=== PATIENT | male | born 1970 | race African-American/Black ===

== ENCOUNTER 2017-12-24 22:02 | Emergency (ER) | payer OTHER ==
[2017-12-24] MEDS: KETOROLAC 60 MG/2 ML INJ. IM (23:15)
== END 2017-12-25 00:45 | disposition home or self-care (01) ==
LOC: ER 22:02
DX: S29.012A Strain of muscle and tendon of back wall of thorax, initial encounter (principal); S39.012A Strain of muscle, fascia and tendon of lower back, initial encounter; E78.00 Pure hypercholesterolemia, unspecified; I10 Essential (primary) hypertension; G89.29 Other chronic pain; V49.49XA Driver injured in collision with other motor vehicles in traffic accident, initial encounter; Y93.I9 Activity, other involving external motion; Y99.8 Other external cause status; Y92.488 Other paved roadways as the place of occurrence of the external cause
CPT/HCPCS: 72040; 72072; 72100; 96372; 99284; J1885

== ENCOUNTER → 2018-01-08 | Day surgery (SDC) | payer OTHER ==
[~2018-01-08] MED LIST: LIDOCAINE 1% PF 2 ML VIAL. ID; MORPHINE SULFATE 2 MG/ML DISP.SYRIN. IV; ONDANSETRON PF 4 MG/2 ML VIAL. IV; PROCHLORPERAZINE 10 MG/2 ML VIAL. IV; PROPOFOL 20 ML IV; fentaNYL PF VIAL 100 MCG/2 ML VIAL IV
[2018-01-08] MEDS: IV RINGERS,LACTATED 1000ML 1,000 ML IV ×2 (08:56)
[2018-01-08 09:03] LABS: POC GLUCOSE 93 mg/dL (70-99)
== END | disposition home or self-care (01) ==
LOC: ENDOS 08:05
DX: K58.2 Mixed irritable bowel syndrome (principal); Z86.010 Personal history of colon polyps; I10 Essential (primary) hypertension; E78.00 Pure hypercholesterolemia, unspecified; J45.909 Unspecified asthma, uncomplicated; M19.90 Unspecified osteoarthritis, unspecified site; E11.9 Type 2 diabetes mellitus without complications; F32.9 Major depressive disorder, single episode, unspecified; F41.9 Anxiety disorder, unspecified; Z72.89 Other problems related to lifestyle; Z98.890 Other specified postprocedural states; Z79.84 Long term (current) use of oral hypoglycemic drugs
CPT/HCPCS: 43235; 82962; J2704

== ENCOUNTER → 2018-01-16 | Outpatient (CLI) | payer OTHER | END | disposition home or self-care (01) | LOC: NM 08:40 | DX: R10.84 Generalized abdominal pain (principal); I10 Essential (primary) hypertension; E11.9 Type 2 diabetes mellitus without complications; E78.00 Pure hypercholesterolemia, unspecified; J45.909 Unspecified asthma, uncomplicated; Z86.010 Personal history of colon polyps | CPT/HCPCS: 78264; A9541 ==

== ENCOUNTER 2019-04-04 07:26 | Day surgery (SDC) | payer OTHER ==
[~2019-04-04 07:26] MED LIST changes: +AMLO10TA8 PO; +CEFP100T PO; +CRESTOR10 MG PO; +CYCL10TA2 PO; +DICY20TA3 PO; +DOXY100T PO; +FLUT12AE IH; +HYDR-2765 PO; +HYDR-2802 PO; +HYDR-3164 PO; +IV RINGERS,LACTATED 1000ML 1,000 ML IV SCH; -LIDOCAINE 1% PF 2 ML VIAL. ID; +LOSA25TA54 PO; +LUBI8CAP4 PO; +MELO15TA23 PO; +METF10007 PO; +METF500T11 PO; +METF500T16 PO; -MORPHINE SULFATE 2 MG/ML DISP.SYRIN. IV; +MULT1TAB6 PO; +NAPR-514 PO; -ONDANSETRON PF 4 MG/2 ML VIAL. IV; +PRED-220 PO; -PROCHLORPERAZINE 10 MG/2 ML VIAL. IV; -PROPOFOL 20 ML IV; +RANI150C PO; +TIZA4TAB2 PO; +TRAZ-118 PO; +VALA500T PO; +VENTOLIN HFA18 GM INH; -fentaNYL PF VIAL 100 MCG/2 ML VIAL IV
[2019-04-04] MEDS ORDERED: DULO30CA2 PO (07:57)
[2019-04-04] MEDS ORDERED: TIZA4TAB8 PO (07:58)
[2019-04-04] MEDS ORDERED: ATOR10TA60 PO (07:58)
[2019-04-04] MEDS ORDERED: MONT10TA49 PO (07:59)
[2019-04-04] MEDS ORDERED: LIDOCAINE 2% PF 5 ML VIAL. ONE (08:13)
[2019-04-04] MEDS ORDERED: PROPOFOL 40 ML IV ONE (08:13)
[2019-04-04 08:51] VITALS: BP 116/71
--- NOTE | 2019-04-07 15:07 | PATHOLOGY ---
[facility] Accession Number: [id number] . 01 Material submitted: . colon - RANDOM COLON BIOPSY . 01 Clinical history: . Abdominal pain . 02 Diagnosis: Colonic mucosa, random colon biopsy: - No significant pathologic abnormalities. (JPM:editorial clerk; 04/07/2019) MBR 04/07/2019 1040 Local . 02 Comment: Sections of the random colon biopsy reveal multiple segments of colonic mucosa containing several mucosal-associated lymphoid aggregates. There is no evidence of a chronic destructive colitis, lymphocytic colitis, or collagenous colitis. (JPM:abdifatah; 04/07/2019) . 02 Electronically signed: . Reinier Durant MD, Pathologist NPI- [id number] . 01 Gross description: . Received in formalin labeled "Acworth, Rogers, random colon BX," are multiple segments of martinez soft tissue measuring 2.1 x 0.6 x 0.1 cm in aggregate dimensions. The specimen is filtered and entirely submitted in cassette A1. (TSD; 04/04/2019) TOB/TOB 04/04/2019 1726 Local . 02 Pathologist provided ICD-10: R10.9 . 02 CPT . 646649 Specimen Comment: A courtesy copy of this report has been sent to Specimen Comment: [phone], . Specimen Comment: Report sent to / DR RODRIGUEZ Performed at: 01 [facility] [address], [place] [id number] MD Micheal Solis MD Phone: [phone] Performed at: 02 [facility] [address] [place], [place] [id number] MD Reinier Durant MD Phone: [phone]
== END 2019-04-04 09:26 | disposition home or self-care (01) ==
LOC: ENDOS 07:26
PROVIDERS: ATTEND Internal Medicine Gastroenterology
DX: K29.50 Unspecified chronic gastritis without bleeding (principal); K52.9 Noninfective gastroenteritis and colitis, unspecified; K64.0 First degree hemorrhoids; E11.9 Type 2 diabetes mellitus without complications; E78.00 Pure hypercholesterolemia, unspecified; F15.90 Other stimulant use, unspecified, uncomplicated; J45.909 Unspecified asthma, uncomplicated; Z87.891 Personal history of nicotine dependence; Z79.84 Long term (current) use of oral hypoglycemic drugs; Z98.890 Other specified postprocedural states
CPT/HCPCS: 43235; 45380; 82962; 88305; J2001; J2704

== ENCOUNTER 2019-06-01 14:21 | Emergency (ER) | payer OTHER, MEDICARE ==
[~2019-06-01] VITALS: Ht 185.4 cm; Wt 104.3 kg
[~2019-06-01 14:21] MED LIST changes: +ATOR10TA60 PO; +DULO30CA2 PO; -IV RINGERS,LACTATED 1000ML 1,000 ML IV SCH; +MONT10TA49 PO; +TIZA4TAB8 PO
[2019-06-01 14:25] VITALS: BP 173/117
[2019-06-01] MEDS ORDERED: ORPH100T PO (15:20)
--- NOTE | 2019-06-01 15:20 | PHYS DOC ---
Past Medical History Past Medical History: Diabetes-Type II, High Cholesterol, Hypertension, Other Additional Past Medical Histor: Chronic Back and Neck Pain, IBS Past Surgical History: Other Additional Past Surgical Histo: BACK AND NECK FUSION, Hernia, left hand surgery Alcohol Use: Occasionally Drug Use: None Adult General Chief Complaint Chief Complaint: BACK PAIN OR INJURY HPI HPI Patient is a 49 year old [male who presents with [right shoulder pain. Patient reports he has had several issues with his back and neck in the past, has had surgery approximately 15-20 years ago. States he has been going to physical therapy for this, has been taking pain medications and muscle relaxers including Flexeril and Robaxin for his discomfort, reports it had been fine up until 4 days ago he started to have some pain in his right shoulder which feels similar to when he is always had in his left. Denies any recent trauma, denies falls, denies heavy lifting. States he just has some pain in his neck, states nonspecific. Denies any recent fever, denies any nausea, vomiting, abdominal pain] Review of Systems Review of Systems Constitutional: Denies fever or chills [] Eyes: Denies change in visual acuity, redness, or eye pain [] Respiratory: Denies cough or shortness of breath [] Cardiovascular: No additional information not addressed in HPI [] GI: Denies abdominal pain, nausea, vomiting, bloody stools or diarrhea [] : Denies dysuria or hematuria [] Musculoskeletal: Complains of right shoulder pain, chronic left shoulder pain, neck pain. Denies stiffness[] Integument: Denies rash or skin lesions [] Neurologic: Denies headache, focal weakness or sensory changes [] Endocrine: Denies polyuria or polydipsia [] All other systems were reviewed and found to be within normal limits, except as documented in this note. Current Medications Current Medications Current Medications Medications (Trade) Dose Ordered Sig/Alyssa Start Time Stop Time Status Last Admin Dose Admin Morphine Sulfate (Morphine Sulfate) 2 mg 1X ONCE 06/01/19 15:30 06/01/19 15:31 DC 06/01/19 15:32 2 MG Orphenadrine Citrate (Norflex) 60 mg 1X ONCE 06/01/19 15:30 06/01/19 15:31 DC 06/01/19 15:31 60 MG Allergies Allergies Allergies Coded Allergies Type Severity Reaction Last Updated Verified No Known Drug Allergies 04/04/19 No Physical Exam Physical Exam Constitutional: Well developed, well nourished, no acute distress, non-toxic appearance. [] HENT: Normocephalic, atraumatic, bilateral external ears normal, oropharynx moist, no oral exudates, nose normal. [] Eyes: PERRLA, EOMI, conjunctiva normal, no discharge. [] Neck: Normal range of motion, no tenderness, supple, no stridor. No meningeal signs[] Cardiovascular:Heart rate regular rhythm, no murmur [] Lungs & Thorax: Bilateral breath sounds clear to auscultation [] Abdomen: Bowel sounds normal, soft, no tenderness, no masses, no pulsatile masses. [] Skin: Warm, dry, no erythema, no rash. [] Back: No tenderness, no CVA tenderness. [] Extremities: No tenderness, no cyanosis, no clubbing, ROM intact, no edema. Muscular Tenderness noted on palpation to right inferior scapula no lesions noted no deformity [] Neurologic: Alert and oriented X 3, normal motor function, normal sensory function, no focal deficits noted. [] Psychologic: Affect normal, judgement normal, mood normal. [] Current Patient Data Vital Signs Vital Signs Date Time Temp Pulse Resp B/P (MAP) Pulse Ox O2 Delivery O2 Flow Rate FiO2 06/01/19 15:32 14 99 Room Air 06/01/19 14:25 98.8 108 173/117 (135) 98.8 EKG EKG [] Radiology/Procedures Radiology/Procedures [] Course & Med Decision Making Course & Med Decision Making Pertinent Labs and Imaging studies reviewed. (See chart for details) [Discussed the patient following up with his provider who manages his chronic neck and back pain, we'll provide pain medications here. We'll provide additional muscle relaxer here different than what he is currently been taking.] Dragon Disclaimer Dragon Disclaimer This electronic medical record was generated, in whole or in part, using a voice recognition dictation system. Departure Departure Impression: Primary Impression: Right shoulder pain Disposition: HOME, SELF-CARE Condition: STABLE Referrals: DUANE RODRIGUEZ MD (PCP) Patient Instructions: Shoulder Pain, [id number] Additional Instructions: As we discussed taking or a bill at home. Take your muscle relaxers to have at home. On [place] call your pain specialists to get in for an appointment to evaluate your right shoulder further. Try to avoid lifting anything heavy Scripts Orphenadrine Citrate (ORPHENADRINE CITRATE) 100 Mg Tablet.er 1 TAB PO BID, #10 TAB 1 Refill Prov: DAJA JIMENES APRN 06/01/19 Problem Qualifiers Primary Impression: Right shoulder pain Chronicity: acute Qualified Codes: M25.511 - Pain in right shoulder DAJA JIMENES APRN Jun 01, 2019 15:20
[2019-06-01] MEDS ORDERED: ORPHENADRINE CITRATE 60 MG/2 ML VIAL. IM ONE (15:30)
[2019-06-01] MEDS ORDERED: MORPHINE SULFATE 2 MG/ML VIAL. IM ONE (15:30)
== END 2019-06-01 15:40 | disposition home or self-care (01) ==
LOC: ER 14:21
DX: M25.511 Pain in right shoulder (principal); G89.29 Other chronic pain; E11.9 Type 2 diabetes mellitus without complications; E78.00 Pure hypercholesterolemia, unspecified; I10 Essential (primary) hypertension; K58.9 Irritable bowel syndrome, unspecified; Z79.899 Other long term (current) drug therapy
CPT/HCPCS: 96372; 99284; J2270; J2360

== ENCOUNTER 2021-01-20 14:37 | Emergency (ER) | payer MEDICARE, OTHER ==
[~2021-01-20] VITALS: Ht 188 cm; Wt 109.2 kg
[~2021-01-20 14:37] MED LIST changes: +AMLO-187 PO; -AMLO10TA8 PO; -HYDR-2802 PO; +HYDR-3423 PO; +METF-658 PO; -METF500T11 PO; +ORPH100T PO; -VALA500T PO; +VALA500T9 PO
--- NOTE | 2021-01-20 15:50 | PHYS DOC ---
Past Medical History Past Medical History: Diabetes-Type II, High Cholesterol, Hypertension, Other Additional Past Medical Histor: Chronic Back and Neck Pain, IBS, colon polyps (JERAMIE RAMOS MD) Past Surgical History: Other Additional Past Surgical Histo: BACK AND NECK FUSION, Hernia, left hand surgery (JERAMIE RAMOS MD) Smoking Status: Former Smoker Alcohol Use: Occasionally Drug Use: None (JERAMIE RAMOS MD) General Adult EDM: Chief Complaint: RECTAL BLEED HPI: HPI: Patient is a 50 year old male who presents with rectal bleeding starting today. Patient states that last week he started having increasing right lower back pain. Not too unusual for him as he has a history of previous neck and back fusion surgeries. It was unusual that he had the pain on the right side. He went to an outside facility at [facility], he reports that he had a CT done there. He is unsure whether this is of his lumbar spine or of his abdomen/pelvis. He is unclear of the results of the CT, but states he was instructed to follow-up with his PCP. Since that time is developed some increasing abdominal discomfort in the lower quadrants. He has had normal bowel movements including up until this morning. This afternoon he started having a sensation of something wet near his rectum, he wiped and found bright red blood. He did not have a bowel movement with this bright red blood. Several times later he continued to have increasing blood with wiping. Denies fevers/chills. No history of similar. Has had multiple colonoscopies but that his product support representative, states that his last one was last year and was reportedly "okay". He has had polyps in the past on his colonoscopies. He is not on anticoagulation. (JERAMIE RAMOS MD) Review of Systems: Review of Systems: Constitutional: Denies fever or chills. [] Eyes: Denies change in visual acuity. [] HENT: Denies nasal congestion or sore throat. [] Respiratory: Denies cough or shortness of breath. [] Cardiovascular: Denies chest pain or edema. [] GI: lower abdominal cramps, rectal bleeding. [] : Denies dysuria. [] Musculoskeletal: Chronic back pain. [] Integument: Denies rash. [] Neurologic: Denies headache, focal weakness or sensory changes. [] Endocrine: Denies polyuria or polydipsia. [] Lymphatic: Denies swollen glands. [] Psychiatric: Denies depression or anxiety. [] (JERAMIE RAMOS MD) Heart Score: C/O Chest Pain: N/A Risk Factors: Risk Factors: DM, Current or recent (<one month) smoker, HTN, HLP, family history of CAD, obesity. Risk Scores: Score 0 - 3: 2.5% MACE over next 6 weeks - Discharge Home Score 4 - 6: 20.3% MACE over next 6 weeks - Admit for Clinical Observation Score 7 - 10: 72.7% MACE over next 6 weeks - Early Invasive Strategies (JERAMIE RAMOS MD) C/O Chest Pain: N/A (JUAN TORRES DO) Family History: Family History: No pertinent family history (JERAMIE RAMOS MD) Allergies: Allergies: Allergies Coded Allergies Type Severity Reaction Last Updated Verified No Known Drug Allergies 04/04/19 No (JERAMIE RAMOS MD) Physical Exam: PE: Constitutional: Well developed, well nourished, no acute distress, non-toxic appearance. [] HENT: Normocephalic, atraumatic, bilateral external ears normal, oropharynx moist, no oral exudates, nose normal. [] Eyes: PERRLA, EOMI, conjunctiva normal, no discharge. [] Neck: Normal range of motion, no tenderness, supple, no stridor. [] Cardiovascular:Heart rate regular rhythm, no murmur [] Lungs & Thorax: Bilateral breath sounds clear to auscultation [] Abdomen: Mild bilateral lower abdominal discomfort. No rebound or guarding. Abdomen is soft. No evidence of external hemorrhoids or anal fissure. Rectal exam without return of blood. There was some rectal fullness, that may represent internal hemorrhoids. [] Skin: Warm, dry, no erythema, no rash. [] Back: No tenderness, no CVA tenderness. [] Extremities: No tenderness, no cyanosis, no clubbing, ROM intact, no edema. [] Neurologic: Alert and oriented X 3, normal motor function, normal sensory function, no focal deficits noted. [] Psychologic: Affect normal, judgement normal, mood normal. [] (JERAMIE RAMOS MD) Current Patient Data: Vital Signs: Vital Signs Date Time Temp Pulse Resp B/P (MAP) Pulse Ox O2 Delivery O2 Flow Rate FiO2 01/20/21 15:27 97.4 60 18 128/72 (135) 97 Room Air 97.4 (JERAMIE RAMOS MD) EKG: EKG: NA[] (JERAMIE RAMOS MD) Radiology/Procedures: Radiology/Procedures: [] (JERAMIE RAMOS MD) Impression: FINDINGS: LOWER CHEST: Calcified granulomas in the lingula. ABDOMEN/PELVIS: Diffuse hepatic steatosis. No suspicious focal hepatic lesion. Unremarkable gallbladder, biliary ducts, spleen and adrenals. Mildly atrophic pancreatic parenchyma with fat infiltration. No hydronephrosis in either kidney. Punctate (1 mm) nonobstructing calculus in the upper pole left kidney. Simple appearing 1.8 cm cyst in the lower pole right kidney. Subcentimeter hypodensities in both renal cortices, too small to characterize, statistically representing cysts. No bowel obstruction. Colonic diverticulosis. Focal wall thickening in the proximal sigmoid colon with adjacent fat stranding. No evidence of abscess or perforation. There is 1.0 cm hyperdense nodule seen along the superior wall of the proximal transverse colon with adjacent trace fat stranding. Normal appendix. Normal caliber abdominal aorta. Mesenteric arteries and portal vein are patent. No pneumoperitoneum or ascites. Beckie fat in the central small bowel mesentery with prominent mesenteric lymph nodes, nonspecific findings and can be seen in mesenteric panniculitis. No lymphadenopathy in the abdomen or pelvis by size criteria. Unremarkable urinary bladder and prostate. MUSCULOSKELETAL: No acute osseous process. Disc spacer at the L5-S1. IMPRESSION: 1. Mild acute uncomplicated sigmoid diverticulitis. 2. There is 1.0 cm hyperdense nodule seen along the superior wall of the proximal transverse colon with adjacent trace fat stranding. Findings likely representing diverticula with possible adjacent inflammation. Recommend the follow-up colonoscopy to exclude neoplasm. 3. Diffuse hepatic steatosis. 4. Punctate nonobstructing left nephrolithiasis. (JUAN TORRES DO) Course & Med Decision Making: Course & Med Decision Making Pertinent Labs and Imaging studies reviewed. (See chart for details) 50-year-old gentleman with past medical history of colon polyps, hypertension, hyperlipidemia, previous back and neck fusion surgeries who presents with rectal bleeding starting today. Prior to the rectal bleeding he had an increase in his chronic back pain and some increasing lower abdominal pain. He was seen at an outside facility on 01/[address] (although he is unclear what body part was imaged or the results). On arrival his vital signs are normal. Rectal exam without evidence of fissure or external hemorrhoids. There was rectal fullness, that could represent internal hemorrhoids, versus another process such as rectal cancer or polyps. We will check labs including CBC, CMP. There is no stool or blood return on fecal occult, so this was canceled. I have requested records from [facility] to obtain his CT imaging reports from 01/14. 15:50 We are unable to obtain OSH records. On reevaluation the patient continues to have reassuring vital signs. His CBC and CMP are at baseline. He still has lower abdominal tenderness to palpation. Given this tenderness that was not present on his outside hospital evaluation, a CT of the abdomen pelvis was obtained. If the CT scan is reassuring, given the small amount of bleeding, reassuring labs, reassuring vital signs, and established gastroenterology follow-up I feel that he would be safe for outpatient management with his PCP and GI team. Patient will be signed out to oncoming provider with CT imaging pending at 18:35. Jeramie Ramos MD (JERAMIE RAMOS MD) Course & Med Decision Making Assumed care at shift change disposition pending laboratory analysis radiologic imaging and reevaluation. CT imaging results uncomplicated sigmoid diverti culitis. Cipro and Flagyl IV added to patient's treatment. Results reviewed and discussed with patient and . Patient will be discharged home with prescription of Cipro and Flagyl. (JUAN TORRES DO) Herman Disclaimer: Herman Disclaimer: This electronic medical record was generated, in whole or in part, using a voice recognition dictation system. (JERAMIE RAMOS MD) Departure Departure Impression: Primary Impression: Rectal bleed Additional Impressions: Lower abdominal pain Diverticulitis Disposition: HOME / SELF CARE / HOMELESS Condition: STABLE Referrals: DUANE RODRIGUEZ MD (PCP) Call your PCP tomorrow to schedule follow-up appointment. Patient Instructions: Diverticulitis, Rectal Bleeding Additional Instructions: Your labs and vital signs were very reassuring. We did not find a reason to hospitalize you based on your CT scan. It will be very important that you follow-up with your primary care doctor as well as your product support representative. You will likely require repeat colonoscopy. If your bleeding worsens, you have chest pain, shortness of breath, lightheadedness, or worsening pain please return to the emergency department for reevaluation immediately. Scripts Hydrocodone/Acetaminophen (Hydrocodone-Acetamin 5-325 mg) 1 Each Tablet 1 EACH PO Q4-6HRS, #14 TAB Prov: JUAN TORRES I DO 01/20/21 Metronidazole (METRONIDAZOLE) 500 Mg Tablet 1 TAB PO BID for 10 Days, #20 TAB 0 Refills Prov: JUAN TORRES DO 01/20/21 Ciprofloxacin Hcl (CIPROFLOXACIN HCL) 500 Mg Tablet 1 TAB PO BID, #20 TAB Prov: JUAN TORRES DO 01/20/21 JERAMIE RAMOS MD Jan 20, 2021 15:50 JUAN TORRES DO Jan 20, 2021 19:09
[2021-01-20 16:12] LABS: BASO # 0.1 x10^3/uL (0.0-0.2); BASO % 1 % (0-3); EOS # 0.1 x10^3/uL (0.0-0.7); EOS % 2 % (0-3); HEMATOCRIT 42.9 % (39.0-53.0); HEMOGLOBIN 14.8 g/dL (13.0-17.5); LYMPH # 1.4 x10^3/uL (1.0-4.8); LYMPH % 28 % (24-48); MEAN CORPUSCULAR HEMOGLOBIN 27 pg (25-35); MEAN CORPUSCULAR HGB CONC 34 g/dL (31-37); MEAN CORPUSCULAR VOLUME 78 fL (79-100); MONO # 0.7 x10^3/uL (0.0-1.1); MONO % 14 % (0-9); NEUT # 2.7 x10^3/uL (1.8-7.7); NEUT % 54 % (31-73); PLATELET COUNT 262 x10^3/uL (140-400); RED BLOOD COUNT 5.53 x10^6/uL (4.30-5.70); RED CELL DISTRIBUTION WIDTH 15.1 % (11.5-14.5); WHITE BLOOD COUNT 4.9 x10^3/uL (4.0-11.0)
[2021-01-20 16:21] LABS: CALCIUM 8.8 mg/dL (8.5-10.1); CREATININE 0.8 mg/dL (0.7-1.3); GFR 123.3; POTASSIUM 3.9 mmol/L (3.5-5.1)
[2021-01-20 16:27] LABS: ALBUMIN 3.5 g/dL (3.4-5.0); TOTAL BILIRUBIN 0.4 mg/dL (0.2-1.0); TOTAL PROTEIN 7.1 g/dL (6.4-8.2)
[2021-01-20] MEDS ORDERED: IOHEXOL 300 MG/ML 100ML VIAL. IV ONE (18:15)
--- NOTE | 2021-01-20 18:52 | RAD ---
EXAMINATION: CT abdomen and pelvis with IV contrast. INDICATION:50 years, Male, lower abdominal pain, rectal bleeding, history of polyps. TECHNIQUE: Axial CT images of the abdomen and pelvis were obtained. Coronal and sagittal reformatted performed. COMPARISON: None. Exposure: One or more of the following individualized dose reduction techniques were utilized for thi s examination: 1. Automated exposure control 2. Adjustment of the mA and/or kV according to patient size 3. Use of iterative reconstruction technique. FINDINGS: LOWER CHEST: Calcified granulomas in the lingula. ABDOMEN/PELVIS: Diffuse hepatic steatosis. No suspicious focal hepatic lesion. Unremarkable gallbladder, biliary duct s, spleen and adrenals. Mildly atrophic pancreatic parenchyma with fat infiltration. No hydronephrosi s in either kidney. Punctate (1 mm) nonobstructing calculus in the upper pole left kidney. Simple stef earing 1.8 cm cyst in the lower pole right kidney. Subcentimeter hypodensities in both renal cortices , too small to characterize, statistically representing cysts. No bowel obstruction. Colonic diverticulosis. Focal wall thickening in the proximal sigmoid colon wit h adjacent fat stranding. No evidence of abscess or perforation. There is 1.0 cm hyperdense nodule se en along the superior wall of the proximal transverse colon with adjacent trace fat stranding. Normal appendix. Normal caliber abdominal aorta. Mesenteric arteries and portal vein are patent. No pneumoperitoneum o r ascites. Beckie fat in the central small bowel mesentery with prominent mesenteric lymph nodes, nons pecific findings and can be seen in mesenteric panniculitis. No lymphadenopathy in the abdomen or pel vis by size criteria. Unremarkable urinary bladder and prostate. MUSCULOSKELETAL: No acute osseous process. Disc spacer at the L5-S1. IMPRESSION: 1. Mild acute uncomplicated sigmoid diverticulitis. 2. There is 1.0 cm hyperdense nodule seen along the superior wall of the proximal transverse colon w ith adjacent trace fat stranding. Findings likely representing diverticula with possible adjacent inf lammation. Recommend the follow-up colonoscopy to exclude neoplasm. 3. Diffuse hepatic steatosis. 4. Punctate nonobstructing left nephrolithiasis. Electronically signed by: Denita Guerra MD (01/20/2021 6:50 PM) [facility]
[2021-01-20] MEDS ORDERED: CIPROFLOXACIN 400MG PREMIX 200 ML IV ONE (19:15)
[2021-01-20] MEDS ORDERED: CIPR500T2 PO (19:44)
[2021-01-20] MEDS ORDERED: HYDR-2759 PO (19:44)
[2021-01-20] MEDS ORDERED: METR-34 PO (19:44)
[2021-01-20 22:36] VITALS: BP 126/75
== END 2021-01-20 22:47 | disposition home or self-care (01) ==
LOC: ER 14:37
DX: K57.32 Diverticulitis of large intestine without perforation or abscess without bleeding (principal); K62.5 Hemorrhage of anus and rectum; R10.31 Right lower quadrant pain; R10.32 Left lower quadrant pain; E11.9 Type 2 diabetes mellitus without complications; E78.00 Pure hypercholesterolemia, unspecified; I10 Essential (primary) hypertension; G89.29 Other chronic pain
CPT/HCPCS: 36415; 74177; 80053; 85025; 96365; 96368; 99285; J0744; J3490; Q9967